=== PATIENT | female | born 1955 | race Caucasian/White ===

== ENCOUNTER → 2019-05-29 | Outpatient (CLI) | payer OTHER ==
[2013-07-18 03:24] VITALS: BP 137/83
[~2019-05-29] MED LIST: DOCU-109 PO; LEVO125T PO; LISI-130 PO; LISI1TAB19 PO; OMEG-128 PO; OMEP40CA45 PO; RANI300C PO; SIMV20TA18 PO; VORT10TA PO
[2019-05-29 09:45] LABS: BASO # 0.1 x10^3/uL (0.0-0.2); BASO % 1 % (0-3); EOS # 0.1 x10^3/uL (0.0-0.7); EOS % 2 % (0-3); HEMATOCRIT 41.7 % (36.0-47.0); HEMOGLOBIN 14.4 g/dL (12.0-15.5); LYMPH # 1.7 x10^3/uL (1.0-4.8); LYMPH % 28 % (24-48); MEAN CORPUSCULAR HEMOGLOBIN 30 pg (25-35); MEAN CORPUSCULAR HGB CONC 35 g/dL (31-37); MEAN CORPUSCULAR VOLUME 88 fL (79-100); MONO # 0.6 x10^3/uL (0.0-1.1); MONO % 9 % (0-9); NEUT # 3.8 x10^3/uL (1.8-7.7); NEUT % 60 % (31-73); PLATELET COUNT 241 x10^3/uL (140-400); RED BLOOD COUNT 4.76 x10^6/uL (3.50-5.40); RED CELL DISTRIBUTION WIDTH 12.6 % (11.5-14.5); WHITE BLOOD COUNT 6.3 x10^3/uL (4.0-11.0)
[2019-05-29 10:07] LABS: ALBUMIN 3.2 g/dL (3.4-5.0); CALCIUM 9.3 mg/dL (8.5-10.1); CREATININE 0.9 mg/dL (0.6-1.0); GFR 63.7; POTASSIUM 3.6 mmol/L (3.5-5.1)
[2019-05-29 10:22] LABS: PROTHROMBIN TIME PATIENT 11.5 SEC (11.7-14.0)
--- NOTE | 2019-05-29 13:18 | EKG ---
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
--- NOTE | 2019-05-29 17:54 | RAD ---
CHEST PA LATERAL Clinical indications: Joint rehabilitation class. History of hypertension. Preoperative evaluation for joint replacement. COMPARISON: July 18, 2013. Findings: Mild elevation of the right hemidiaphragm is seen. This is unchanged. No acute lung infiltrate or pleural effusion or pulmonary edema or lung mass or pneumothorax is seen. The heart size, pulmonary vasculature, mediastinum and both narcisa are unremarkable. The osseous structures appear intact. Impression: No acute radiographic abnormality is seen. Electronically signed by: Eugenio Lao MD (05/29/2019 5:51 PM) [facility] [place]
[2019-05-30 00:08] LABS: HEMOGLOBIN A1C 5.9 % (4.8-5.6)
== END | disposition home or self-care (01) ==
LOC: SURGPAT 13:26
PROVIDERS: ATTEND Orthopaedic Surgery
DX: Z01.818 Encounter for other preprocedural examination (principal); M17.11 Unilateral primary osteoarthritis, right knee; I10 Essential (primary) hypertension
CPT/HCPCS: 36415; 71046; 80048; 82040; 82306; 83036; 85025; 85610; 85651; 85730; 87641; 93005

== ENCOUNTER → 2019-08-24 | Outpatient (CLI) | payer OTHER ==
[2013-07-18 03:24] VITALS: BP 137/83
[~2019-08-24] MED LIST changes: +LEVO25TA4 PO; +TRAM50TA PO; +ZOLP10TA PO
[2019-08-24 10:28] LABS: BASO # 0.1 x10^3/uL (0.0-0.2); BASO % 1 % (0-3); EOS # 0.2 x10^3/uL (0.0-0.7); EOS % 2 % (0-3); HEMATOCRIT 43.3 % (36.0-47.0); HEMOGLOBIN 15.1 g/dL (12.0-15.5); LYMPH # 2.1 x10^3/uL (1.0-4.8); LYMPH % 30 % (24-48); MEAN CORPUSCULAR HEMOGLOBIN 30 pg (25-35); MEAN CORPUSCULAR HGB CONC 35 g/dL (31-37); MEAN CORPUSCULAR VOLUME 87 fL (79-100); MONO # 0.6 x10^3/uL (0.0-1.1); MONO % 8 % (0-9); NEUT # 4.1 x10^3/uL (1.8-7.7); NEUT % 59 % (31-73); PLATELET COUNT 267 x10^3/uL (140-400); RED BLOOD COUNT 4.99 x10^6/uL (3.50-5.40); RED CELL DISTRIBUTION WIDTH 12.8 % (11.5-14.5); WHITE BLOOD COUNT 6.9 x10^3/uL (4.0-11.0)
[2019-08-24 10:38] LABS: C-REACTIVE PROTEIN 1.3 mg/L (0-3.3); CALCIUM 9.4 mg/dL (8.5-10.1); GFR 56.4; POTASSIUM 3.6 mmol/L (3.5-5.1)
[2019-08-24 10:45] LABS: BILIRUBIN,URINE SMALL (NEG); CLARITY,URINE CLEAR; COLOR,URINE YELLOW; NITRITE,URINE NEGATIVE (NEG); PROTEIN,URINE NEGATIVE (NEG-TRACE)
[2019-08-24 10:53] LABS: BACTERIA,URINE FEW /HPF (0-FEW); RBC,URINE RARE /HPF (0-2); SQUAMOUS EPITHELIAL CELL,UR MOD /LPF; WBC,URINE OCC /HPF (0-4)
[2019-08-24 11:05] LABS: PROTHROMBIN TIME PATIENT 11.9 SEC (11.7-14.0)
== END | disposition home or self-care (01) ==
LOC: SURGPAT 09:39
PROVIDERS: ATTEND Orthopaedic Surgery
DX: Z01.818 Encounter for other preprocedural examination (principal); M17.11 Unilateral primary osteoarthritis, right knee
CPT/HCPCS: 36415; 80048; 81001; 85025; 85610; 85730; 86140; 87086; 87641; U0003-CS

== ENCOUNTER → 2019-11-24 | Outpatient (CLI) | payer OTHER ==
[2019-09-01 14:41] VITALS: BP 134/85
[~2019-11-24] MED LIST changes: -LISI1TAB19 PO; +LISI1TAB37 PO; +OXYC-325 PO; +WARF3TAB50 PO
--- NOTE | 2019-11-24 11:15 | KCIC ---
EXAM: Lumbar spine MRI without contrast. HISTORY: Radiculopathy. Right lower extremity numbness. TECHNIQUE: Multiplanar, multisequence magnetic resonance imaging of the lumbar spine was performed without contrast. COMPARISON: None. FINDINGS: There is no significant listhesis. There is endplate remodeling and Schmorl's node formation at multiple levels. There is no suspicious osseous lesion. There is no fracture. The conus terminates at L1. At T12-L1, there is a tiny right paracentral disc protrusion. There is no stenosis. At L1-L2, there is no stenosis. L2-L3, there is a disc bulge and endplate remodeling. There is mild bilateral facet arthropathy. There is no stenosis. At L3-L4, there is a shallow left paracentral to foraminal disc protrusion and annular tear superimposed on a disc bulge and left lateral predominant endplate remodeling. There is mild bilateral facet arthropathy. There is mild to moderate left foraminal stenosis with abutment of the exiting left L3 nerve root. There is mild narrowing of the left lateral recess. At L4-L5, there is a disc bulge and endplate remodeling. There is mild narrowing of the left lateral recess. At L5-S1, there is a left foraminal disc protrusion and osteophyte complex with superior extrusion. There is moderate left foraminal stenosis with abutment of the exiting left L5 nerve root. IMPRESSION: 1. Multilevel degenerative change involving the lumbar spine, described in detail below. This is associated with mild to moderate left foraminal stenosis and abutment of the exiting left L3 nerve root at L3-L4 and moderate left foraminal stenosis with abutment of the exiting left L5 nerve root at L5-S1. 2. No acute osseous finding. Electronically signed by: Maricarmen Valenzuela MD (11/24/2019 11:12 AM) [facility]
== END | disposition home or self-care (01) ==
LOC: KCIC MRI 09:40
PROVIDERS: ATTEND Orthopaedic Surgery
DX: M51.17 Intervertebral disc disorders with radiculopathy, lumbosacral region (principal); M51.15 Intervertebral disc disorders with radiculopathy, thoracolumbar region; M51.46 Schmorl's nodes, lumbar region; M25.78 Osteophyte, vertebrae; M48.07 Spinal stenosis, lumbosacral region
CPT/HCPCS: 72148

== ENCOUNTER → 2020-05-17 | Outpatient (CLI) | payer OTHER ==
[2019-09-01 14:41] VITALS: BP 134/85
[~2020-05-17] MED LIST changes: +GABA300C18 PO; +OMEG1CAP27 PO
--- NOTE | 2020-05-17 12:13 | PDOC1 ---
INITIAL PAIN CONSULT DATE OF SERVICE: DOS: DATE: 05/17/20 TIME: 12:05 CHIEF COMPLAINT: Chief Complaint: Right knee joint pain Right lower extremity pain HISTORY OF PRESENT ILLNESS: 64-year-old female presents with history of pain in the right knee status post knee replacement on August 29, 2019 with an injury during rehab that evening and he really expiration and repair August 30, 2019. Patient reports that she has had significant pain since the surgery was never really resolved completely it is better than it was right after the surgery but still significantly painful patient to complete the rest of her physical therapy after the revision on August 30, 2019. Patient reports now the pain is significant with walking weightbearing standing changing positions getting up from seated position putting all her weight on her right leg such as walking up a stair or a curb and is radiating into the lower leg into the lateral foot as well patient also reports some pain in the right posterior hip and into the right lateral and anterior thigh on the right side as well as the medial knee. Patient reports the pain in the knee is most significant complaint describes it is constant stabbing throbbing shooting with numbness and tingling pain in the lower extremity below the knee radiating from the hip to the foot essentially patient reports is a burning sensation in the joint itself with cramping and aching in the hip and a cold sensation in the lower leg at times as well as the foot. Patient did have an MRI scan of the lumbar spine showing multilevel degenerative changes with associated mild to moderate left foraminal stenosis and abutment of the exiting left L3 nerve root at L3-4 and moderate left foraminal stenosis with abutment of the exiting left L5 nerve root at L5-S1. Patient has tried hydrocodone as well as gabapentin neither 1 of which have helped significantly patient had some injections in the knee prior to the surgery but nothing since is doing physical therapy since her surgery and continues to do the exercises as well. Patient reports that wakens her from sleep continuously throughout the night does not affect her bladder or bowel continence it does affect her ability walk significantly. Patient not use any assistive devices however to ambulate. Patient rates her disability rating 0-10 10 being the worst is a 5 with family possibilities patient activity 7 with recreation for with social activity 10 with sexual behavior 3 with self-care activities and 6 with life support activity specially sleeping. PAST MEDICAL HISTORY: PMH: Hypertension, obesity, arthritis, stress incontinence PREVIOUS SURGERIES: Past Surgical Hx: Right knee total replacement on August 29, 2019 with revision August 30, 2019, ORIF left knee 1991, tonsillectomy age 7, tubal ideation 8, cholecystectomy, carpal tunnel repair CURRENT MEDICATIONS: Current Meds: Active Scripts Medications Dose Route/Sig Max Daily Dose Days Date Category Fish Oil 1,000 Mg Softgel ([place]-3 Fatty Acids/Fish Oil) 1 Each Capsule 1 Each PO DAILY 05/17/20 Reported Gabapentin (Gabapentin) 300 Mg Capsule 300 Mg PO TID 05/17/20 Reported Levothyroxine Sodium 25 Mcg Tablet 20 Mcg PO DAILYAC 08/24/19 Reported Lisinopril-Hctz 20-12.5 Mg Tab (Lisinopril/Hydrochlorothiazide) 1 Each Tablet 1 Tab PO DAILY 05/31/19 Reported Omeprazole 40 Mg Capsule.dr 40 Mg PO DAILY 05/31/19 Reported Simvastatin 20 Mg Tablet 40 Mg PO HS 07/18/13 Reported ALLERGIES; Allergies: Coded Allergies: No Known Drug Allergies (Unverified , 08/29/19) FAMILY HISTORY: Family Hx: Hypertension SOCIAL HISTORY: Social Hx: Patient does not leona alcohol does not smoke not use any illegal illicit or recreational drugs lives with her spouse is currently retired but is v natalie active and enjoys hiking and walking which is been limited significantly with the right knee pain. REVIEW OF SYSTEMS: ROS: Positive for those items mentioned in history of present illness, all systems are reviewed, otherwise negative ,and are complete full and well-documented on patient's chart. PHYSICAL EXAM: VS: Blood pressure 133/85 pulse 73 respirations 18 temperature 97.9 was Fahrenheit height is 5 foot 9 inches weight is 232 pounds PE: PHYSICAL EXAMINATION: GENERAL: The patient is awake, alert, oriented, appropriate, very pleasant dem eanor HEENT: Shows normocephalic, atraumatic. Extraocular movements are intact and symmetrical. Oral cavity: Mucous membranes moist and pink. Dentition is intact. NECK: Shows anterior throat supple without palpable lymphadenopathy noted. Swallow reflex symmetrical. CHEST: Shows normal on inspection. Breath sounds are clear bilaterally, no rales rhonchi or wheezes. HEART: Shows S1, S2 clear. No murmurs auscultated. ABDOMEN: Soft, nontender, nondistended, obese. No palpable organomegaly is noted. No rebound or guarding demonstrated. BACK: Shows spine grossly in the midline. Normal-appearing cervical lordotic curvature. There is slightly increased thoracic kyphosis, some minor flattening of the lumbar lordotic curvature. Lumbar paraspinous muscles show symmetrical on inspection, on palpation shows some moderate tenderness only mildly throughout the middle and lower distribution of the paraspinous muscles bilaterally, but without specific trigger points, without radiation of pain. The patient has good rotational motion of the lumbar spine, both laterally as well as extension and flexion without significant difficulty. No tenderness over the spinous processes, sacrum or sacroiliac regions. EXTREMITIES: Lower extremities show deep tendon reflexes 1+ in the patellar and tendo calcaneus tendons. Motor exam is 4 on a scale of 5 with right dorsiflexion, extension, quadriceps and hamstring flexion and 5/5 on the left. Peripheral pulses are 1+ posterior tibial. No peripheral edema is noted bilaterally. Lower extremities are warm and dry to touch, equal in color and appearance. Right knee shows well-healed surgical scarring, range of motion is full with both active and passive range and good hinged motion without crepitus or ratcheting. SKIN: Shows warm and dry, good turgor. No edema. No sores, rashes or bruising throughout. IMPRESSION: Impression: 64-year-old female with history of chronic postoperative pain status post right total knee arthroplasty August 29, 2019 with revision August 30, 2019. MRI scan lumbar spine as noted EMG right lower extremity as noted Plan: Options were discussed with the patient including conservative medical management physical therapies interventional techniques. She would like to pursue interventional techniques that she is currently doing physical therapies and taking medications which were not significantly improving the pain. We discussed a right genicular nerve block using description as well as anatomical models to describe the procedure. Patient would like to proceed, we will wait for preauthorization with her insurance provider, once this is obtained we will plan right genicular nerve block at that time. In the meantime patient will continue with stretching strength exercises exercising and walking as tolerated. ASHLEY GUERRERO MD May 17, 2020 12:13
== END | disposition home or self-care (01) ==
LOC: PNCL 10:57
PROVIDERS: ATTEND Anesthesiology
DX: M25.561 Pain in right knee (principal); I10 Essential (primary) hypertension; E66.9 Obesity, unspecified; M19.90 Unspecified osteoarthritis, unspecified site; N39.3 Stress incontinence (female) (male); E03.9 Hypothyroidism, unspecified; E78.00 Pure hypercholesterolemia, unspecified; F32.9 Major depressive disorder, single episode, unspecified; Z90.49 Acquired absence of other specified parts of digestive tract; Z98.890 Other specified postprocedural states; Z79.899 Other long term (current) drug therapy; Z82.49 Family history of ischemic heart disease and other diseases of the circulatory system; Z72.89 Other problems related to lifestyle
CPT/HCPCS: 99214; G0463

== ENCOUNTER → 2020-05-31 | Outpatient (CLI) | payer OTHER ==
[2019-09-01 14:41] VITALS: BP 134/85
[~2020-05-31] MED LIST changes: +BUPIVACAINE MPF 0.25% 10 ML VIAL. ONE; +IOHEXOL 180 MG/ML 10 ML VIAL. ONE; +methylPREDNISolone ACETATE 40 MG/ML VIAL. ONE; +methylPREDNISolone ACETATE 80 MG/ML VIAL. ONE
--- NOTE | 2020-05-31 10:28 | PDOC ---
Progress Note - Pain Clinic Date of Service: DOS: DATE: 05/31/20 TIME: 10:24 Diagnosis: Dx: Right knee joint pain status post total knee arthroplasty with chronic postoperative pain Lumbar degenerative disc disease History or Present Illness: HPI: 64-year-old female returns status post initial evaluation preauthorization for right genicular nerve block. Patient complains of continued pain in the right knee with walking standing weightbearing climbing steps stairs and standing. Patient reports pain is a 9 on scale 10 is worse 6 on average 5 its least over the last week and is a 6 today. Patient describes pain as aching dull and tight alternating shooting pain into the lower extremity as well mostly in the posterior calf and medial calf patient reports is tingling and cramping in the knee and can be constant with weightbearing. Patient reports it is better with sitting or laying down generally does not awaken her from sleep when she turns on her right side in which case it does awaken her. Patient reports no new changes no new deficits. Physical Exam: VS: Blood pressure is 139/78 pulse 77 respirations 18 temperature 98.2 F weight is 234 pounds PE: PHYSICAL EXAMINATION: GENERAL: The patient is awake, alert, oriented, appropriate, very pleasant demeanor HEENT: Shows normocephalic, atraumatic. Extraocular movements are intact and symmetrical. Oral cavity: Mucous membranes moist and pink. NECK: Shows anterior throat supple without palpable lymphadenopathy noted. Swal low reflex symmetrical. CHEST: Shows normal on inspection. Breath sounds are clear bilaterally. HEART: Shows S1, S2 clear. No murmurs auscultated. ABDOMEN: Soft, nontender, nondistended, obese. No palpable organomegaly is noted. BACK: Shows spine grossly in the midline. Normal-appearing cervical lordotic curvature. There is slightly increased thoracic kyphosis, some flattening of the lumbar lordotic curvature. Lumbar paraspinous muscles show symmetrical on inspection, on palpation shows some moderate tenderness diffusely throughout the upper, middle and lower distribution of the paraspinous muscles, but without specific trigger points, without radiation of pain. The patient has good rotational motion of the lumbar spine, both laterally as well as extension and flexion without significant difficulty. EXTREMITIES: Lower extremities show deep tendon reflexes 1+ in the patellar and tendo calcaneus tendons. Motor exam is 4 on a scale of 5 with right dorsiflexion, extension, quadriceps and hamstring flexion and 5/5 on the left. Peripheral pulses are 1+ posterior tibial. No peripheral edema is noted bilaterally. Lower extremities shows well-healed surgical scar over the right knee. Passive flexion extension shows good range of motion with the right knee and the left without crepitus and without ratcheting. SKIN: Shows warm and dry, good turgor. No edema. No sores, rashes or bruising throughout. Procedure: Procedure: Options were discussed with the patient. Patient chart reviews her current medication regimen updated current review of systems updated today as well. We will proceed with a right genicular block with fluoroscopic guidance today. Risks were discussed including but not limited to bleeding infection possibility of intravascular injection sequelae spread local anesthetic numbness side effects steroid medication and portal scarring pain control. Patient understands wished to proceed. Return to clinic in approximately 2 weeks for follow-up, was counseled as return appointment, activity level, and side effects to be aware of. Medication Injected: Med Injected: Under sterile prep and drape patient's right knee was prepped and draped and using C-arm fluoroscopic guidance genicular nerve block was carried out with superior medial and lateral genicular nerves and inferior medial genicular nerve block. 22-gauge Quincke needles with stylets were used x3. [place] were placed at the junction of the femur and the medial lateral condyles as well as the medial condyle of the tibia. 1 cc of contrast was used at each level for a total of 3 cc and 0.25% ropivacaine 2 cc each level for a total of 6 cc was used, 120 mg Depo-Medrol total was used, after negative aspiration at each site. Patient tolerated procedure well and had no complications. Condition at Discharge: Condition at Discharge: Condition at discharge stable, patient tolerated the procedure well and had no complications. ASHLEY GUERRERO MD May 31, 2020 10:28
--- NOTE | 2020-05-31 10:29 | PDOC4 ---
PROCEDURE Procedure Patient was consented for right genicular nerve block. Risks were discussed including but not limited to bleeding infection possibility of intravascular injection sequelae spread local anesthetic and numbness side effects steroid medication exposure to fluoroscopy and poor results running pain control. She understands wished to proceed. Under sterile prep and drape patient's right knee was prepped and draped and using C-arm fluoroscopic guidance genicular nerve block was carried out with superior medial and lateral genicular nerves and inferior medial genicular nerve block. 22-gauge Quincke needles with stylets were used x3. [place] were placed at the junction of the femur and the medial lateral condyles as well as the medial condyle of the tibia. 1 cc of contrast was used at each level for a total of 3 cc and 0.25% ropivacaine 2 cc each level for a total of 6 cc was used, 120 mg Depo-Medrol total was used, after negative aspiration at each site. Patient tolerated procedure well and had no complications. ASHLEY GUERRERO MD May 31, 2020 10:29
== END | disposition home or self-care (01) ==
LOC: PNCL 09:29
PROVIDERS: ATTEND Anesthesiology
DX: M25.561 Pain in right knee (principal); M51.36 Other intervertebral disc degeneration, lumbar region; E78.00 Pure hypercholesterolemia, unspecified; I10 Essential (primary) hypertension; K21.9 Gastro-esophageal reflux disease without esophagitis; E03.9 Hypothyroidism, unspecified; F32.9 Major depressive disorder, single episode, unspecified; Z96.651 Presence of right artificial knee joint; Z79.899 Other long term (current) drug therapy; Z98.890 Other specified postprocedural states; Z72.89 Other problems related to lifestyle; Z82.49 Family history of ischemic heart disease and other diseases of the circulatory system
CPT/HCPCS: 64450; 77002; J1030; J1040; J3490; Q9965

== ENCOUNTER → 2020-07-02 | Outpatient (CLI) | payer OTHER ==
[2019-09-01 14:41] VITALS: BP 134/85
[~2020-07-02] MED LIST changes: -BUPIVACAINE MPF 0.25% 10 ML VIAL. ONE
--- NOTE | 2020-07-02 10:52 | PDOC ---
Progress Note - Pain Clinic Date of Service: DOS: DATE: 07/02/20 TIME: 10:48 Diagnosis: Dx: Right knee joint pain with post op chronic pain status post total knee arthroplasty Lumbar radiculopathy with lumbar degenerative disc disease History or Present Illness: HPI: 64-year-old female returns for follow-up status post genicular block right knee. Patient reports only minimal decrease in pain for about 1day pain returned fairly significantly and is now in the entire leg low back as well on the right side rating the posterior hip posterior lateral thigh lateral anterior thigh medial lower leg as well as into the foot on the right side and the medial aspect patient reports a 10 on scale 10 is worse over the past week 9 on average 8 its least is a 9 today patient describes it as constant aching can be severe with leg cramps on the right side as well as aching and tight in the back tingling and burning and cramping in the leg. Patient reports no new motor or sensory deficits much worse with walking standing weightbearing better with sitting or lying down but is waking her from sleep so she she lays on her right side about 3-4 times at night. Patient reports no new motor or sensory deficits. No new bowel or bladder incontinence Physical Exam: VS: Blood pressure is 134/93 pulse 60 respirations 16 temperature is 97.8 F, height is 5 foot 9 inches weight is 236 pounds PE: PHYSICAL EXAMINATION: GENERAL: The patient is awake, alert, oriented, appropriate, very pleasant demeanor HEENT: Shows normocephalic, atraumatic. Extraocular movements are intact and symmetrical. Oral cavity: Mucous membranes moist and pink. Dentition is intact. NECK: Shows anterior throat supple without palpable lymphadenopathy noted. Swallow reflex symmetrical. CHEST: Shows normal on inspection. Breath sounds are clear bilaterally. HEART: Shows S1, S2 clear. No murmurs auscultated. ABDOMEN: Soft, nontender, nondistended, obese. No palpable organomegaly is noted. No rebound or guarding demonstrated. BACK: Shows spine grossly in the midline. Normal-appearing cervical lordotic curvature. There is slightly increased thoracic kyphosis, some minor flattening of the lumbar lordotic curvature. Lumbar paraspinous muscles show symmetrical on inspection, on palpation shows some moderate tenderness diffusely throughout the upper, middle and lower distribution of the paraspinous muscles without specific trigger points, without radiation of pain. The patient has good rotational motion of the lumbar spine, both laterally as well as extension and flexion without significant difficulty. No tenderness over the spinous processes, sacrum or sacroiliac regions. EXTREMITIES: Lower extremities show deep tendon reflexes 1+ in the patellar and tendo calcaneus tendons. Motor exam is 4 on a scale of 5 with right dorsiflexion, extension, quadriceps and hamstring flexion and 5/5 on the left. Peripheral pulses are 1+ posterior tibial. No peripheral edema is noted bilaterally. Lower extremities are warm and dry to touch, equal in color and appearance. SKIN: Shows warm and dry, good turgor. No edema. No sores, rashes or bruising throughout. Procedure: Procedure: Options discussed with the patient. Patient chart was reviewed as her current medication regimen updated current review of systems updated today as well. We will proceed with lumbar epidural steroid injection today with fluoroscopic guidance. Risks were discussed including but not limited to: Bleeding, infection, possibility of epidural hematoma and subsequent neurological compromise, dural puncture, headaches, spinal cord and/or nerve damage, side effects of steroid medication, and poor results regarding pain control. Patient understands and wished to proceed. Patient will return to the clinic in approximate 2 weeks for follow-up, was counseled as to return appointment activity level and side effects to be aware of. Medication Injected: Med Injected: Procedure is lumbar epidural steroid injection under local anesthetic using sterile prep and drape at the L4-5 level using C-arm fluoroscopic guidance in both AP and lateral views medications injected is 120 mg Depo-Medrol + 10 mL preservative-free normal saline and 2 mL contrast- condition at discharge is stable patient tolerated procedure well had no complications. Condition at Discharge: Condition at Discharge: Condition at discharge stable, patient tolerated the procedure well and had no complications. ASHLEY GUERRERO MD Jul 02, 2020 10:52
--- NOTE | 2020-07-02 10:53 | PDOC4 ---
PROCEDURE Procedure Patient was consented for lumbar epidural steroid injection. Risks were dis cussed including but not limited to: Bleeding, infection, possibility of epidural hematoma and subsequent neurological compromise, dural puncture, headaches, spinal cord and/or nerve damage, side effects of steroid medication, and poor results regarding pain control. Patient understands and wished to proceed. Procedure is lumbar epidural steroid injection under local anesthetic using sterile prep and drape at the L4-5 level using C-arm fluoroscopic guidance in both AP and lateral views medications injected is 120 mg Depo-Medrol + 10 mL preservative-free normal saline and 2 mL contrast- condition at discharge is stable patient tolerated procedure well had no complications. ASHLEY GUERRERO MD Jul 02, 2020 10:53
== END | disposition home or self-care (01) ==
LOC: PNCL 09:17
PROVIDERS: ATTEND Anesthesiology
DX: M51.16 Intervertebral disc disorders with radiculopathy, lumbar region (principal); M25.561 Pain in right knee; G89.29 Other chronic pain; E78.00 Pure hypercholesterolemia, unspecified; I10 Essential (primary) hypertension; M19.90 Unspecified osteoarthritis, unspecified site; E03.9 Hypothyroidism, unspecified; F32.9 Major depressive disorder, single episode, unspecified; Z90.49 Acquired absence of other specified parts of digestive tract; Z98.890 Other specified postprocedural states; Z79.899 Other long term (current) drug therapy; Z72.89 Other problems related to lifestyle; Z96.651 Presence of right artificial knee joint
CPT/HCPCS: 62323; J1030; J1040; Q9965